=== PATIENT | female | born 1955 | race Caucasian/White ===

== ENCOUNTER → 2018-09-08 | Outpatient (CLI) | payer BC ==
--- NOTE | 2018-09-08 11:54 | XR ---
Right hip HISTORY: Right hip pain 2 views of the right hip There is remodeling of the right femoral head, some mild joint space loss is present. Alignment and b one mineralization are maintained. Some marginal spurring is present in the femoral head. IMPRESSION: Osteoarthritis.
== END ==
LOC: RADXRMAIN 11:32
PROVIDERS: ATTEND Orthopaedic Surgery
DX: M16.11 Unilateral primary osteoarthritis, right hip (principal)
CPT/HCPCS: 73502

== ENCOUNTER → 2022-07-24 | Outpatient (CLI) | payer BC ==
--- NOTE | 2022-07-24 16:40 | US ---
EXAMINATION TYPE: US venous doppler duplex LE RT DATE OF EXAM: 07/24/2022 4:28 PM COMPARISON: NONE CLINICAL INDICATION: Female, 67 years old with history of M25.561 ACUTE PAIN OF RT KNEE; Pt states ri ght knee pain SIDE PERFORMED: Right TECHNIQUE: The lower extremity deep venous system is examined utilizing real time linear array sonog shima with graded compression, doppler sonography and color-flow sonography. VESSELS IMAGED: Common Femoral Vein Deep Femoral Vein Greater Saphenous Vein * Femoral Vein Popliteal Vein Small Saphenous Vein * Proximal Calf Veins (* superficial vessels) Grayscale, color doppler, spectral doppler imaging performed of the deep veins of the lower extremiti es. There is normal flow, compressibility, vascular waveforms. Right Leg: Negative for DVT, Probable Mukherjee's cyst right pop fossa= 3.7 x 0.7 x 2.5 cm Results called to Antonella at Dr's office at time of exam IMPRESSION: 1. No deep venous thrombosis of the right lower extremity. 2. Right Mukherjee's cyst.
== END | disposition home or self-care (01) ==
LOC: RADUSWWP 16:04
PROVIDERS: ATTEND Family Medicine
DX: M25.561 Pain in right knee (principal); M71.21 Synovial cyst of popliteal space [Baker], right knee